=== PATIENT | female | born 1990 | race Caucasian/White ===

== ENCOUNTER 2020-04-28 15:13 | Emergency (ER) | payer OTHER ==
[~2020-04-28] VITALS: Ht 170.2 cm; Wt 173.3 kg
--- NOTE | 2020-04-28 15:36 | NUR ---
first contact with pt. pt c/o lower abd pain/cramping with n/v/vaginal bleeding since pt's iud removed today in the morning. pt denies any other sx. pt's aox4. resps even and unlabored. bp/spo2 monitors in place. call light within reach.
[2020-04-28 16:04] LABS: BASOPHILS # (AUTO) 0.04 x10^3/uL (0-0.1); BASOPHILS % (AUTO) 0 % (0-1); EOSINOPHILS % (AUTO) 1 % (1-7); LYMPHOCYTES # (AUTO) 1.87 x10^3/uL (1-3.4); LYMPHOCYTES % (AUTO) 15 % (22-44); MD MORPH REVIEW ONLY; MEAN CORPUSCULAR HEMOGLOBIN 22.1 pg (27.0-34.8); MEAN CORPUSCULAR HGB CONC 30.9 g/dL (32.4-35.8); MEAN PLATELET VOLUME 7.7 fL (7.4-10.4); MONOCYTES # (AUTO) 0.71 x10^3/uL (0.2-0.8); MONOCYTES % (AUTO) 6 % (2-9); NEUTROPHILS # (AUTO) 9.83 x10^3/uL (1.8-6.8); NEUTROPHILS % (AUTO) 78 % (42-75); PLATELET COUNT 480 x10^3/uL (130-400); RED BLOOD COUNT 4.67 x10^6/uL (3.82-5.3); RED CELL DISTRIBUTION WIDTH 22.9 % (9.6-15.2)
--- NOTE | 2020-04-28 16:04 | NUR ---
PT'S STRAIGHT CATH'D USING STERILE TECHNIQUE AT THIS TIME. URINE COLLECTED AND THIS RN WALKED TO LAB FOR UA.
[2020-04-28 16:08] LABS: ALANINE AMINOTRANSFERASE 19 U/L (12-78); ALBUMIN 3.7 g/dL (3.4-5.0); ANION GAP 8 mmol/L (5-15); CALCIUM 8.9 mg/dL (8.5-10.1); CHLORIDE 111 mmol/L (98-107); CREATININE 0.81 mg/dL (0.55-1.02)
[2020-04-28 16:13] LABS: ALKALINE PHOSPHATASE 64 U/L (45-117); BILIRUBIN,TOTAL 0.4 mg/dL (0.2-1.0)
[2020-04-28 16:21] LABS: MICROSCOPIC NOT IND
[2020-04-28 16:43] LABS: ANISOCYTOSIS 1+; HYPOCHROMIA 1+; MICROCYTOSIS 1+
[2020-04-28 16:44] LABS: <PLATELET ESTIMATE> INCREASED; <PLT MORPHOLOGY> NORMAL PLT MORPH; OVALOCYTES 1+; POLYCHROMASIA 1+
[2020-04-28 16:58] VITALS: BP 144/81
--- NOTE | 2020-04-28 16:59 | NUR ---
pt resting in [facility]. pt's aox4. resps even and unlabored. bp/spo2 monitors in place. call light within reach. awaiting dc.
--- NOTE | 2020-04-28 17:19 | NUR ---
Patient given discharge instructions and they have confirmed that they understand the instructions. Patient ambulatory with steady gait.
== END 2020-04-28 17:20 | disposition home or self-care (01) ==
LOC: ED 16:08
DX: N93.8 Other specified abnormal uterine and vaginal bleeding (principal); R10.84 Generalized abdominal pain; R11.10 Vomiting, unspecified
CPT/HCPCS: 36415; 80053; 81003; 84703; 85025; 99283